=== PATIENT | male | born 1990 | race American Indian/Alaskan Native ===

== ENCOUNTER 2017-12-03 12:12 | Emergency (ER) | payer SELFPAY ==
[2017-12-03] MEDS ORDERED: MOTRIN PO ONE (13:37)
[2017-12-03] MEDS ORDERED: BOOSTRIX IM ONE (13:37)
[2017-12-03] MEDS ORDERED: CATAPRES PO ONE (13:37)
--- NOTE | 2017-12-03 13:37 | Emergency Department Report ---
ED Upper Extremity Inj HPI - General Chief Complaint: Extremity Injury, Upper Stated Complaint: LEFT ARM SWOLLEN AN PAINFUL Time Seen by Provider: 12/03/17 13:22 Source: patient Mode of arrival: Ambulatory Limitations: No Limitations - History of Present Illness Initial Comments: This is a 26-year-old male nontoxic, well nourished in appearance, no acute signs of distress presents to the ED with c/o of left forearm redness and swelling 1 day. Patient stated that he believes that something bit him prior to the symptoms. Patient denies any nausea, vomiting, fever, chills, headache, stiff neck, numbness, tingling, chest pain and shortness of breath. Patient denies any allergies or significant past medical history. Denies being up-to- date with tetanus. Denies any trauma. MD Complaint: Injury to:: left, forearm -: days(s) (1) Other Extremity Injury: Forearm: Left Other Injuries: none Improves With: none Worsens With: none Associated Symptoms: denies other symptoms. denies: weakness, numbness, neck pain, suspects foreign body, nausea/vomiting, heard/felt popping sensat - Related Data Previous Rx's Medication Instructions Recorded Last Taken Type Acetaminophen with Codeine 1 each PO Q6H PRN #12 tablet 12/03/17 Unknown Rx [Tylenol with Codeine #3 Tablet] Clindamycin [Clindamycin CAP] 300 mg PO Q8H #21 cap 12/03/17 Unknown Rx amLODIPine [Norvasc] 5 mg PO DAILY #30 tab 12/03/17 Unknown Rx Allergies Allergy/AdvReac Type Severity Reaction Status Date / Time No Known Allergies Allergy Unverified 12/03/17 12:18 ED Review of Systems ROS: Stated complaint: LEFT ARM SWOLLEN AN PAINFUL Other details as noted in HPI Constitutional: denies: chills, fever Eyes: denies: eye pain, eye discharge, vision change ENT: denies: ear pain, throat pain Respiratory: denies: cough, shortness of breath, wheezing Cardiovascular: denies: chest pain, palpitations Endocrine: no symptoms reported Gastrointestinal: denies: abdominal pain, nausea, diarrhea Genitourinary: denies: urgency, dysuria Musculoskeletal: denies: back pain, joint swelling, arthralgia Skin: denies: rash, lesions Neurological: denies: headache, weakness, paresthesias Psychiatric: denies: anxiety, depression Hematological/Lymphatic: denies: easy bleeding, easy bruising ED Past Medical Hx - Past Medical History Previous Medical History?: No - Surgical History Past Surgical History?: No - Social History Smoking Status: Never Smoker Substance Use Type: None - Medications Home Medications: Home Medications Medication Instructions Recorded Confirmed Last Taken Type Acetaminophen with Codeine 1 each PO Q6H PRN #12 tablet 12/03/17 Unknown Rx [Tylenol with Codeine #3 Tablet] Clindamycin [Clindamycin CAP] 300 mg PO Q8H #21 cap 12/03/17 Unknown Rx amLODIPine [Norvasc] 5 mg PO DAILY #30 tab 12/03/17 Unknown Rx ED Physical Exam - General Limitations: No Limitations General appearance: alert, in no apparent distress - Head Head exam: Present: atraumatic, normocephalic - Eye Eye exam: Present: normal appearance Pupils: Present: normal accommodation - ENT ENT exam: Present: normal exam, mucous membranes moist - Neck Neck exam: Present: normal inspection, full ROM. Absent: tenderness, meningismus, lymphadenopathy - Respiratory Respiratory exam: Present: normal lung sounds bilaterally. Absent: respiratory distress, wheezes, rales, rhonchi, stridor, chest wall tenderness, accessory muscle use, decreased breath sounds, prolonged expiratory - Cardiovascular Cardiovascular Exam: Present: regular rate, normal rhythm, normal heart sounds. Absent: bradycardia, tachycardia, irregular rhythm, systolic murmur, diastolic murmur, rubs, gallop - GI/Abdominal GI/Abdominal exam: Present: soft, normal bowel sounds - Rectal Rectal exam: Present: deferred - Extremities Exam Extremities exam: Present: normal inspection, full ROM, tenderness, normal capillary refill. Absent: joint swelling - Expanded Upper Extremity Exam Left General: Present: normal inspection Shoulder Exam: Present: normal inspection, full ROM. Absent: tenderness, swelling Upper Arm exam: Present: normal inspection, full ROM. Absent: tenderness, swelling Elbow exam: Present: normal inspection, full ROM. Absent: tenderness, swelling Forearm Wrist exam: Present: normal inspection, full ROM, tenderness, swelling, erythema. Absent: abrasion, laceration, ecchymosis, deformity, crepidus, dislocation, tenderness over anatomical snuff box, pain with axial thumb loading Hand Wrist exam: Present: normal inspection, full ROM. Absent: tenderness, swelling Neuro motor exam: Present: wrist extension intact, thumb opposition intact, thumb IP flexion intact, thumb adduction intact, fingers 2-5 abduction intact Neurosensory exam: Present: 2-point discrimination, radial nerve intact, ulnar nerve intact, median nerve intact Vascular: Present: vascular compromise, normal capillary refill, radial pulse, brachial pulse, ulnar pulse - Back Exam Back exam: Present: normal inspection, full ROM - Neurological Exam Neurological exam: Present: alert, oriented X3, normal gait - Psychiatric Psychiatric exam: Present: normal affect, normal mood - Skin Skin exam: Present: warm, dry, intact, normal color. Absent: rash ED Course Vital Signs 12/03/17 12:18 Temperature 98.2 F Pulse Rate 77 Respiratory 18 Rate Blood Pressure 164/112 O2 Sat by Pulse 100 Oximetry - Reevaluation(s) Reevaluation #1: 12/03/17 13:39 Patient is speaking in full sentences with no signs of distress noted. ED Medical Decision Making - Medical Decision Making 26-year-old male that presents with cellulitis. Patient is stable was examined by me. There is no induration or fluctuance. Slight tenderness to touch. No signs of abscess formation. Patient received a tetanus booster in the ED. He is discharged with clindamycin and Tylenol with codeine with Motrin and was instructed not to operate any machinery while taking Tylenol with codeine as a possible drowsiness. Patient was referred to Follow-up with a primary care doctor in 3-5 days or if symptoms worsen and continue return to emergency room as soon as possible. At time of discharge, the patient does not seem toxic or ill in appearance. No acute signs of distress noted. Patient agrees to discharge treatment plan of care. No further questions noted by the patient. I will also start patient on Norvasc as he stated he has been having high blood pressure but never followed up with PCP. Patient received [place] in the ED and blood pressure decreased prior to dishcarge. Critical care attestation.: If time is entered above; I have spent that time in minutes in the direct care of this critically ill patient, excluding procedure time. ED Disposition Clinical Impression: HTN (hypertension) Qualifiers: Hypertension type: unspecified Qualified Code(s): I10 - Essential (primary) hypertension Cellulitis Qualifiers: Site of cellulitis: extremity Site of cellulitis of extremity: upper extremity Laterality: left Qualified Code(s): L03.114 - Cellulitis of left upper limb Disposition: DC- TO HOME OR SELFCARE Is pt being admited?: No Does the pt Need Aspirin: No Condition: Stable Instructions: Hypertension (ED), Cellulitis (ED) Additional Instructions: Follow-up with a primary care doctor in 3-5 days or if symptoms worsen and continue return to emergency room as soon as possible. Do not operate any machinery while taking Tylenol with codeine as this may cause drowsiness. Prescriptions: Acetaminophen with Codeine [Tylenol with Codeine #3 Tablet] 1 each PO Q6H PRN # 12 tablet PRN Reason: Pain , Severe (7-10) amLODIPine [Norvasc] 5 mg PO DAILY #30 tab Clindamycin [Clindamycin CAP] 300 mg PO Q8H #21 cap Referrals: PRIMARY CARE, [Primary Care Provider] - 3-5 Days LUCILLE DIMAS MD [Staff Physician] - 3-5 Days [facility] [Outside] - 3-5 Days [facility] [Outside] - 3-5 Days Forms: Work/School Release Form(ED)
[2017-12-03 14:22] VITALS: BP 146/104
== END 2017-12-03 15:07 | disposition home or self-care (01) ==
LOC: ED 12:12
DX: L03.114 Cellulitis of left upper limb (principal); I10 Essential (primary) hypertension
CPT/HCPCS: 90471; 90715; 99282